=== PATIENT | female | born 1955 | race Caucasian/White ===

== ENCOUNTER 2023-07-07 07:36 | Day surgery (SDC) | payer MEDICARE, MEDICAID ==
[~2023-07-07] VITALS: Ht 160 cm; Wt 95.3 kg
[~2023-07-07 07:36] MED LIST: ATOR40TA28 PO; FURO20 PO; LOSA-382 PO; METF-1211 PO; PROPOFOL 1% 20 ML VIAL IVP ONE; SODIUM CHLORIDE 0.9% 1,000 ML ONE
[2023-07-07] MEDS: SODIUM CHLORIDE 0.9% 1,000 ML IV ONE (08:56)
[2023-07-07 09:25] LABS: GLUCOMETER DEV NAME(LOC) SDS.; GLUCOSE,POINT OF CARE 93 MG/DL (70-110)
[2023-07-07] MEDS ORDERED: LIDOCAINE/PF 2% 5 ML VIAL IM ONE (12:00)
[2023-07-07] MEDS ORDERED: OXYGEN THERAPY IH SCH (20:00)
== END 2023-07-07 12:50 | disposition home or self-care (01) ==
LOC: SURGERY 07:36
PROVIDERS: ATTEND Specialist
DX: R10.13 Epigastric pain (principal); K29.00 Acute gastritis without bleeding; K29.50 Unspecified chronic gastritis without bleeding; K21.9 Gastro-esophageal reflux disease without esophagitis; J45.909 Unspecified asthma, uncomplicated; I10 Essential (primary) hypertension; E11.9 Type 2 diabetes mellitus without complications; R10.84 Generalized abdominal pain; R19.8 Other specified symptoms and signs involving the digestive system and abdomen; M54.30 Sciatica, unspecified side; E78.5 Hyperlipidemia, unspecified; Z79.84 Long term (current) use of oral hypoglycemic drugs; Z79.899 Other long term (current) drug therapy; Z90.49 Acquired absence of other specified parts of digestive tract; Z98.51 Tubal ligation status; Z88.8 Allergy status to other drugs, medicaments and biological substances
CPT/HCPCS: 43239; 82962; 88305; 88312; 88313; C1769; J2704; J3490; J7030